=== PATIENT | female | born 1960 | race Caucasian/White ===

== ENCOUNTER 2020-10-11 04:48 | Inpatient (IN) | payer OTHER ==
[2020-10-11] MEDS ORDERED: NA CHLORIDE 0.9% 1,000 ML ONE ×2 (05:36→06:44)
[2020-10-11 05:52] LABS: Absolute Lymphocytes (CBC) 0.4 K/uL (0.7-4.9); Basophils % 0.2 % (0-1.3); Lymphocytes % 20.1 % (15.3-44.8); MPV 9.7 fL (7.6-11.3)
[2020-10-11] MEDS ORDERED: HYDROCODONE/CHLORPHEN 5 ML/OSYR ONE (05:58)
[2020-10-11] MEDS ORDERED: Levofloxacin 750mg IV 750 MG/150 ML BAG IV ONE (06:00)
[2020-10-11 06:01] LABS: Protime INR 0.83
[2020-10-11 06:23] LABS: ALT/SGPT 23 U/L (12-78); AST/SGOT 12 U/L (15-37); Albumin 3.2 g/dL (3.4-5.0); Alkaline Phosphatase 151 U/L (45-117); BUN Blood Urea Nitrogen 15 mg/dL (7-18); Bicarbonate 30 mmol/L (21-32); Bilirubin Direct 0.1 mg/dL (0-0.2); Bilirubin Total 0.3 mg/dL (0.2-1.0); Glucose Level 102 mg/dL (74-106); Magnesium 1.7 mg/dL (1.8-2.4); NT PRO-BNP 738 pg/mL (<125); Potassium 4.1 mmol/L (3.5-5.1); Protein, Total 6.4 g/dL (6.4-8.2); Sodium Level 146 mmol/L (136-145); Troponin (Emerg Dept Use Only) < 0.02 ng/mL (0.0-0.045)
[2020-10-11 06:39] LABS: Arterial Blood Carboxyhemoglob 0.7 % (0-1.5); Blood Gas Oxyhemoglobin 36.1 % (94-97); Blood O2 Saturation 36.7 % (92-98.5)
[2020-10-11] MEDS ORDERED: PIPER/TAZO/NS 3.375gm 3.375 GM/100 ML BAG ONE (06:44)
[2020-10-11] MEDS ORDERED: NA CHLORIDE 0.9% 2,000 ML ONE (06:57)
[2020-10-11 07:40] LABS: Blood Morphology Comment NOT SEEN (NOT SEEN); Platelet Estimate DECR; White Blood Cell Scan OK (OK)
--- NOTE | 2020-10-11 08:17 | EDPHYS ---
Physician Documentation [facility] Name: Xavi Goodwin Age: 60 yrs Sex: Female : 1960 Arrival Date: 10/11/2020 Time: 04:54 Bed 2 Private MD: ED Physician Jorge Mckeon HPI: 10/11 06:49 This 60 yrs old Female presents to ER via EMS with complaints of Shortness Of pkl Breath. 06:49 The patient has shortness of breath at rest. Onset: The symptoms/episode began/occurred pkl just prior to arrival, yesterday, and became worse. Associated signs and symptoms: Pertinent positives: non-productive cough. Historical: - Allergies: 05:01 Sulfa (Sulfonamide Antibiotics); em - PMHx: 05:01 Anemia; Diabetes - NIDDM; Bipolar disorder; TIA; Anxiety; Hypertension; CHF; em Hyperlipidemia; - PSHx: 05:01 Carpal Tunnel Repair; em - Immunization history:: Adult Immunizations up to date. - Social history:: Smoking status: Patient denies any tobacco usage or history of. ROS: 06:49 Eyes: Negative for injury, pain, redness, and discharge, ENT: Negative for injury, pkl pain, and discharge, Neck: Negative for injury, pain, and swelling, Cardiovascular: Negative for chest pain, palpitations, and edema. 06:49 Respiratory: Positive for cough, with no reported sputum, shortness of breath, at rest. 06:49 Abdomen/GI: Negative for abdominal pain, nausea, vomiting, and diarrhea. 06:49 Back: Negative for acute changes. 06:49 : Negative for urinary symptoms. 06:49 MS/extremity: Negative for acute changes. 06:49 Skin: Negative for rash. 06:49 Neuro: Negative for altered mental status, loss of consciousness. Exam: 06:49 Head/Face: Normocephalic, atraumatic. Eyes: Pupils equal round and reactive to light, pkl extra-ocular motions intact. Lids and lashes normal. Conjunctiva and sclera are non-icteric and not injected. Cornea within normal limits. Periorbital areas with no swelling, redness, or edema. ENT: Nares patent. No nasal discharge, no septal abnormalities noted. Tympanic membranes are normal and external auditory canals are clear. Oropharynx with no redness, swelling, or masses, exudates, or evidence of obstruction, uvula midline. Mucous membranes moist. Neck: Trachea midline, no thyromegaly or masses palpated, and no cervical lymphadenopathy. Supple, full range of motion without nuchal rigidity, or vertebral point tenderness. No Meningismus. Chest/axilla: Normal chest wall appearance and motion. Nontender with no deformity. No lesions are appreciated. Cardiovascular: Regular rate and rhythm with a normal S1 and S2. No gallops, murmurs, or rubs. Normal PMI, no JVD. No pulse deficits. 06:49 Respiratory: moderate respiratory distress is noted, Respirations: labored breathing, Breath sounds: rales, that are moderate, are scattered. 06:49 Abdomen/GI: Bowel sounds: normal, Palpation: abdomen is soft and non-tender, in all quadrants. 06:49 Back: Exam negative for acute changes. 06:49 : Exam negative for acute changes. 06:49 Musculoskeletal/extremity: Exam is negative for acute changes. 06:49 Skin: Exam negative for rash. 06:49 Neuro: Orientation: is normal, Mentation: is normal, Cranial nerves: grossly normal, Motor: is normal. Vital Signs: 04:55 BP 173 / 100; Pulse 132 MON; Resp 31; Temp 98.6(O); Pulse Ox 100% on Non-rebreather em mask; Weight 103.87 kg; Height 5 ft. 6 in. (167.64 cm); Pain 0/10; 05:56 BP 101 / 57; Pulse 101; Resp 27; Pulse Ox 98% on BiPAP; rr5 06:19 BP 70 / 50; Pulse 108; Resp 20; Pulse Ox 98% on 40% BiPAP; rr5 06:45 BP 74 / 51; Pulse 100; Resp 22; Pulse Ox 98% on 40% BiPAP; rr5 07:52 BP 100 / 64 (man/); Pulse 119; Resp 15; Pulse Ox 97% on 40% BiPAP; jl7 09:15 BP 94 / 59; Pulse 103; Resp 19 S; Pulse Ox 95% on BiPAP; jl7 04:55 Body Mass Index 36.96 (103.87 kg, 167.64 cm) em MDM: 05:00 Patient medically screened. pkl 06:49 Data reviewed: vital signs, nurses notes, lab test result(s), EKG, radiologic studies. pkl ED course: Talked to Dr. Granado, will see patient in ER and decide on disposition. 10/11 05:03 Order name: Basic Metabolic Panel pkl 10/11 05:03 Order name: CBC with Diff; Complete Time: 08:17 pkl 10/11 05:03 Order name: LFT's pkl 10/11 05:03 Order name: Magnesium pkl 10/11 05:03 Order name: NT PRO-BNP; Complete Time: 06:41 pkl 10/11 05:03 Order name: PT-INR; Complete Time: 06:41 pkl 10/11 05:03 Order name: Troponin (emerg Dept Use Only); Complete Time: 06:41 pkl 10/11 05:03 Order name: Blood Culture Adult (2) pkl 10/11 05:03 Order name: Lactate; Complete Time: 06:41 pkl 10/11 05:03 Order name: Procalcitonin; Complete Time: 06:41 pkl 10/11 05:03 Order name: ABG; Complete Time: 08:17 pkl 10/11 05:03 Order name: D-Dimer; Complete Time: 06:41 pkl 10/11 05:04 Order name: Basic Metabolic Panel; Complete Time: 06:41 EDMS 10/11 05:04 Order name: Liver (Hepatic) Function; Complete Time: 06:41 EDMS 10/11 05:04 Order name: Magnesium; Complete Time: 06:41 EDMS 10/11 06:26 Order name: SARS-COV-2 RT PCR; Complete Time: 06:41 EDMS 10/11 07:40 Order name: CBC Smear Scan; Complete Time: 08:17 EDMS 10/11 09:32 Order name: Lactate Sepsis 2 HR Follow-up EDMS 10/11 10:01 Order name: CBC with Automated Diff EDMS 10/11 10:01 Order name: CBC with Automated Diff EDMS 10/11 10:01 Order name: Comprehensive Metabolic Panel EDMS 10/11 10:01 Order name: Comprehensive Metabolic Panel EDMS 10/11 10:01 Order name: Lactate EDMS 10/11 10:01 Order name: Lactate EDMS 10/11 10:01 Order name: Lipid Profile EDMS 10/11 10:01 Order name: Lipid Profile EDMS 10/11 10:01 Order name: Magnesium EDMS 10/11 10:01 Order name: Magnesium EDMS 10/11 10:01 Order name: NT PRO-BNP EDMS 10/11 05:03 Order name: XRAY Chest (1 view) pkl 10/11 05:03 Order name: EKG; Complete Time: 05:04 pkl 10/11 05:03 Order name: Cardiac monitoring; Complete Time: 05:57 pkl 10/11 05:03 Order name: EKG - Nurse/Tech; Complete Time: 05:57 pkl 10/11 05:03 Order name: IV Saline Lock; Complete Time: 05:57 pkl 10/11 05:03 Order name: Labs collected and sent; Complete Time: 05:57 pkl 10/11 05:03 Order name: O2 Per Protocol; Complete Time: 05:57 pkl 10/11 05:03 Order name: O2 Sat Monitoring; Complete Time: 05:57 pkl 10/11 06:15 Order name: CT Chest For PE Angio pkl 10/11 10:01 Order name: CONS Physician Consult EDMS 10/11 10:01 Order name: CONS Physician Consult EDMS 10/11 10:01 Order name: NPO EDMS 10/11 10:01 Order name: NT PRO-BNP EDMS 10/11 10:01 Order name: Phosphorus EDMS 10/11 10:01 Order name: Phosphorus EDMS Administered Medications: 05:30 Drug: levofloxacin 750 mg Volume: 150 ml; Route: IVPB; Infused Over: 90 mins; Site: rr5 right forearm; 07:00 Follow up: Response: No adverse reaction; IV Status: Completed infusion jl7 07:00 Follow up: IV Intake: 150ml jl7 05:55 Drug: NS 0.9% 1000 ml Route: IV; Rate: 100 ml/hr; Site: right forearm; rr5 08:00 Follow up: Response: No adverse reaction; IV Status: Infusion continued upon admission jl7 05:55 Drug: Tussionex Pennkinetic ER (chlorpheniramine-hydrocodone) 5 ml Route: PO; rr5 06:21 Follow up: Response: No adverse reaction rr5 06:21 Drug: NS 0.9% 500 ml Route: IV; Rate: bolus; Site: right forearm; rr5 07:00 Follow up: Response: No adverse reaction; IV Status: Completed infusion; IV Intake: jl7 500ml 06:43 Drug: NS 0.9% (30 ml/kg) 30 ml/kg Route: IV; Rate: bolus; Site: right forearm; rr5 07:57 Follow up: Response: No adverse reaction; IV Status: Completed infusion; IV Intake: jl7 2000ml 07:00 Dru.375 grams of (Piperacillin-Tazobactam 3.375 grams, NS 0.9% 100 ml) Route: IVPB; rr5 Infused Over: 60 mins; Site: right hand; 07:00 Follow up: Response: No adverse reaction; IV Status: Completed infusion; IV Intake: jl7 100ml 10:42 CANCELLED (wrong ordering MD): Zofran (Ondansetron) 4 mg IVP once; over 2 minutes jl7 10:42 Drug: Zofran (Ondansetron) 4 mg Route: IVP; Site: right forearm; jl7 Disposition: 08:12 Critical Care:. pkl Disposition: 10/11/20 08:16 Hospitalization ordered by Jacki Granado for Inpatient Admission. Preliminary diagnosis is Acute dyspnea. Large pneumonia right lung. R/O Sepsis. - Bed requested for Telemetry/MedSurg (Inpatient). - Status is Inpatient Admission. jl7 - Condition is Stable. - Problem is new. - Symptoms have improved. Critical care time excluding procedures: 08:12 Critical care time: Bedside Care: 40 minutes. Total time: 40 minutes pkl Signatures: Dispatcher [employer] Anuradha Singh RN RN kl Lam, Pin, MD MD pk Nish Adorno RN RN em Leal, Jahala, RN RN jl7 Will Blackwood RN RN rr5 Corrections: (The following items were deleted from the chart) 05:27 05:06 CORONAVIRUS+MR.LAB.BRZ ordered. EDWI EDMS 10:42 10:41 Zofran (Ondansetron) 4 mg IVP once; over 2 minutes ordered. jl7 jl7 13:28 08:16 Hospitalization Ordered by Jacki Granado MD for Inpatient Admission. Preliminary kl diagnosis is Acute dyspnea. Large pneumonia right lung. R/O Sepsis. Bed requested for Telemetry/MedSurg (Inpatient). Status is Inpatient Admission. Condition is Stable. Problem is new. Symptoms have improved. pkl 14:16 13:28 10/11/2020 08:16 Hospitalization Ordered by Jacki Granado MD for Inpatient jl7 Admission. Preliminary diagnosis is Acute dyspnea. Large pneumonia right lung. R/O Sepsis. Bed requested for Telemetry/MedSurg (Inpatient). Status is Inpatient Admission. Condition is Stable. Problem is new. Symptoms have improved. kl
--- NOTE | 2020-10-11 08:17 | ER ---
Nurse's Notes [facility] Name: Xavi Goodwin Age: 60 yrs Sex: Female : 1960 Arrival Date: 10/11/2020 Time: 04:54 Bed 2 Private MD: Diagnosis: Acute dyspnea. Large pneumonia right lung. R/O Sepsis Presentation: 10/11 04:55 Chief complaint: EMS states: called out for shortness of breath, on scene pt was high em 70's % SPO2, placed on non-re breather now 97%and HR 130's pt A\T\Ox4, had a carpel tunnel sx on left wrist yesterday, denies chest pain. Coronavirus screen: Client denies travel out of the [place] in the last 14 days. Ebola Screen: Patient negative for fever greater than or equal to 101.5 degrees Fahrenheit, and additional compatible Ebola Virus Disease symptoms Patient denies exposure to infectious person. Patient denies travel to an Ebola-affected area in the 21 days before illness onset. No symptoms or risks identified at this time. Initial Sepsis Screen: Does the patient meet any 2 criteria? RR > 20 per min. HR > 90 bpm. Yes Does the patient have a suspected source of infection? Yes: Productive cough/pneumonia If YES to both, name of provider notified: Raman Rouse RN. Risk Assessment: Do you want to hurt yourself or someone else? Patient reports no desire to harm self or others. Onset of symptoms was October 11, 2020. 04:55 Method Of Arrival: EMS: [facility] em 04:55 Acuity: FERCHO 2 em 04:57 Coronavirus screen: At this time, unable to obtain information related to travel rv outside the [place] Coronavirus screen: difficulty breathing, shortness of breath, Client presents with at least one sign or symptom that may indicate coronavirus-19. Standard/surgical mask placed on the client. Provider contacted for isolation considerations. Ebola Screen: No symptoms or risks identified at this time. Initial Sepsis Screen: Does the patient meet any 2 criteria? RR > 20 per min. HR > 90 bpm. Does the patient have a suspected source of infection? Yes: Productive cough/pneumonia. Risk Assessment: Do you want to hurt yourself or someone else? Patient reports no desire to harm self or others. Onset of symptoms was October 11, 2020. 04:57 Acuity: FERCHO 2 rv 04:57 Method Of Arrival: EMS: [facility] rv Triage Assessment: 05:01 General: Appears uncomfortable, ill. Respiratory: Reports shortness of breath at rest rv Onset: The symptoms/episode began/occurred today, the patient has moderate shortness of breath. Historical: - Allergies: 05:01 Sulfa (Sulfonamide Antibiotics); em - PMHx: 05:01 Anemia; Diabetes - NIDDM; Bipolar disorder; TIA; Anxiety; Hypertension; CHF; em Hyperlipidemia; - PSHx: 05:01 Carpal Tunnel Repair; em - Immunization history:: Adult Immunizations up to date. - Social history:: Smoking status: Patient denies any tobacco usage or history of. Screenin:57 Abuse screen: Denies threats or abuse. Denies injuries from another. Nutritional rv screening: No deficits noted. Tuberculosis screening: No symptoms or risk factors identified. Fall Risk None identified. Assessment: 04:56 General: Appears uncomfortable, ill, Behavior is calm, cooperative. Pain: Denies pain. rv Neuro: Level of Consciousness is awake, alert, obeys commands, Oriented to person, place, time, situation. Cardiovascular: Patient's skin is warm and dry. Rhythm is sinus tachycardia. Respiratory: Airway is patent Respiratory effort is labored, Breath sounds are coarse bilaterally. Derm: Skin is intact. 05:57 Reassessment: Patient appears in no apparent distress at this time. Patient is alert, rr5 oriented x 3, equal unlabored respirations, skin warm/dry/pink. Patient states symptoms have improved. 06:05 Respiratory: Patient placed on BiPAP: Inspiratory Pressure: 16 Expiratory (EPAP) rr5 Pressure: 8 FiO2%: 40 Respiratory Rate: 18. 06:19 Reassessment: BP 70/50 mmHg ED provider informed with order made and carried out. rr5 06:22 Reassessment: ravinder from laboratory called with result of d dimer 2383 and rr5 lactate 2.2. ED aware. 06:35 Reassessment: ED Provider with verbal order to follow IVF sepsis per protocol. rr5 07:30 Reassessment: Patient appears in no apparent distress at this time. Patient and/or jl7 family updated on plan of care and expected duration. Pain level reassessed. Patient is alert, oriented x 3, equal unlabored respirations, skin warm/dry/pink. Patient denies pain at this time. Patient states feeling better. 08:30 Reassessment: Patient appears in no apparent distress at this time. No changes from jl7 previously documented assessment. Patient and/or family updated on plan of care and expected duration. Pain level reassessed. Patient is alert, oriented x 3, equal unlabored respirations, skin warm/dry/pink. Vital Signs: 04:55 BP 173 / 100; Pulse 132 MON; Resp 31; Temp 98.6(O); Pulse Ox 100% on Non-rebreather em mask; Weight 103.87 kg; Height 5 ft. 6 in. (167.64 cm); Pain 0/10; 05:56 BP 101 / 57; Pulse 101; Resp 27; Pulse Ox 98% on BiPAP; rr5 06:19 BP 70 / 50; Pulse 108; Resp 20; Pulse Ox 98% on 40% BiPAP; rr5 06:45 BP 74 / 51; Pulse 100; Resp 22; Pulse Ox 98% on 40% BiPAP; rr5 07:52 BP 100 / 64 (man/); Pulse 119; Resp 15; Pulse Ox 97% on 40% BiPAP; jl7 09:15 BP 94 / 59; Pulse 103; Resp 19 S; Pulse Ox 95% on BiPAP; jl7 04:55 Body Mass Index 36.96 (103.87 kg, 167.64 cm) em ED Course: 04:54 Patient arrived in ED. em 04:56 Raman Rouse, RAMONA is Primary Nurse. rv 04:59 Triage completed. em 05:00 Jorge Mckeon MD is Attending Physician. pkl 05:00 Patient has correct armband on for positive identification. mail clerk bills on. Pulse rv ox on. NIBP on. 05:01 Arm band placed on. em 05:10 COVID swab sent to lab. rr5 05:21 XRAY Chest (1 view) In Process Unspecified. EDMS 05:30 Inserted saline lock: 22 gauge in right forearm, using aseptic technique. Blood rr5 collected. 05:30 First set of blood cultures drawn by me. rr5 05:31 VBG drawn. rr5 05:45 Second set of blood cultures drawn by me. rr5 07:00 Inserted saline lock: 20 gauge in right hand, using aseptic technique. rr5 07:12 No provider procedures requiring assistance completed. Patient admitted, IV remains in rr5 place. intact, No redness/swelling at site. 08:14 Jacki Granado MD is Hospitalizing Provider. pkl 08:38 CT Chest For PE Angio In Process Unspecified. EDMS 09:22 Repeat lab(s) drawn. by wv, sent to lab. jl7 Administered Medications: 05:30 Drug: levofloxacin 750 mg Volume: 150 ml; Route: IVPB; Infused Over: 90 mins; Site: rr5 right forearm; 07:00 Follow up: Response: No adverse reaction; IV Status: Completed infusion jl7 07:00 Follow up: IV Intake: 150ml jl7 05:55 Drug: NS 0.9% 1000 ml Route: IV; Rate: 100 ml/hr; Site: right forearm; rr5 08:00 Follow up: Response: No adverse reaction; IV Status: Infusion continued upon admission jl7 05:55 Drug: Tussionex Pennkinetic ER (chlorpheniramine-hydrocodone) 5 ml Route: PO; rr5 06:21 Follow up: Response: No adverse reaction rr5 06:21 Drug: NS 0.9% 500 ml Route: IV; Rate: bolus; Site: right forearm; rr5 07:00 Follow up: Response: No adverse reaction; IV Status: Completed infusion; IV Intake: jl7 500ml 06:43 Drug: NS 0.9% (30 ml/kg) 30 ml/kg Route: IV; Rate: bolus; Site: right forearm; rr5 07:57 Follow up: Response: No adverse reaction; IV Status: Completed infusion; IV Intake: jl7 2000ml 07:00 Dru.375 grams of (Piperacillin-Tazobactam 3.375 grams, NS 0.9% 100 ml) Route: IVPB; rr5 Infused Over: 60 mins; Site: right hand; 07:00 Follow up: Response: No adverse reaction; IV Status: Completed infusion; IV Intake: jl7 100ml 10:42 CANCELLED (wrong ordering MD): Zofran (Ondansetron) 4 mg IVP once; over 2 minutes jl7 10:42 Drug: Zofran (Ondansetron) 4 mg Route: IVP; Site: right forearm; jl7 Intake: 07:00 IV: 100ml; Total: 100ml. jl7 07:00 IV: 500ml; Total: 600ml. jl7 07:00 IV: 150ml; Total: 750ml. jl7 07:57 IV: 2000ml; Total: 2750ml. jl7 Outcome: 08:16 Decision to Hospitalize by Provider. pkl 14:15 Admitted to Tele accompanied by tech, via wheelchair, room 427, with oxygen, with jl7 chart, Report called to Boiler House Supervisor 14:15 Condition: stable 14:15 Discharge instructions given to patient, Instructed on the need for admit, Demonstrated understanding of instructions. 14:16 Patient left the ED. jl7 Signatures: Dispatcher [employer] EDJorge Holbrook MD MD pkNish Do, RN RN Madelaine Zuñiga RN RN jl7 Raman Rouse RN RN Will Taylor, RN RN rr5 Corrections: (The following items were deleted from the chart) 05:00 04:57 BP 173 / 100; Pulse 129bpm; Resp 30bpm; Pulse Ox 100% BiPAP; rv rv
--- NOTE | 2020-10-11 08:54 | RAD REPORT ---
EXAM DESCRIPTION: CT - Chest For Pe Angio - 10/11/2020 8:38 am CLINICAL HISTORY: cough,sob COMPARISON: None. TECHNIQUE: Dynamically enhanced axial 3 mm thick images of the chest were obtained during administra tion of <100> mL Isovue 370 IV contrast. Coronal and oblique reconstruction images were generated and reviewed. Exam utilizes a protocol for optimal evaluation of pulmonary arterial tree. Maximum intensity projections 3D imaging was utilized All CT scans are performed using dose optimization technique as appropriate and may include automated exposure control or mA/KV adjustment according to patient size. FINDINGS: A pulmonary embolus is not seen. A thoracic aortic aneurysm is not noted. A pleural effusion is not seen. A pericardial effusion is not seen. Extensive alveolar opacities throughout the right lung. A hiatal hernia is present. The wall of the distal esophagus/proximal stomach appears thickened IMPRESSION: Negative for a pulmonary embolism. Extensive right pneumonia. This should be followed until it is clear to help exclude a post obstructi ve process A hiatal hernia is present. The wall of the distal esophagus/proximal stomach appears thickened. This may indicate a mass. Direct visualization is recommended
[2020-10-11] MEDS: NA CHLORIDE 0.9% 1,000 ML IV SCH ×2 (10:00→14:52)
[2020-10-11] MEDS ORDERED: PANTOPRAZOLE 40 MG INJ IVP ONE (10:00)
[2020-10-11] MEDS ORDERED: SODIUM CHLORIDE 0.9% 10ML INJ IV PRN (10:00)
[2020-10-11] MEDS ORDERED: ONDANSETRON 4 MG/2 ML VIAL ONE ×3 (10:57→13:05)
--- NOTE | 2020-10-11 11:23 | RAD REPORT ---
EXAM DESCRIPTION: Nila Single View10/11/2020 5:22 am CLINICAL HISTORY: The patient is 60 years old and is Female; Cough;Dyspnea TECHNIQUE: Single portable upright view of the chest. COMPARISON: No relevant prior studies available. FINDINGS: Lungs: Multilobar airspace opacities in the right lung including the right upper lobe. Left lung is clear. No pulmonary vascular congestion. Pleural space: Unremarkable. No pneumothorax. Heart: Unremarkable. No cardiomegaly. Mediastinum: Unremarkable. Bones/joints: No acute fracture identified. Upper abdomen: No free air in the visualized upper abdomen. IMPRESSION: Multilobar airspace opacities in the right lung including the right upper lobe. Correlat e clinically for pneumonia. Electronically signed by: Spring Rolle MD 10/11/2020 5:34 AM CDT Due to temporary technical issues with the PACS/Fluency reporting system, reports are being signed by the in house radiologist without review as a courtesy to ensure prompt reporting. The interpreting r adiologist is fully responsible for the content of the report.
[2020-10-11 11:57] VITALS: BMI 36.9
[2020-10-11] MEDS: Meropenem 1,000 MG in NA CHLORIDE 0.9% 100 ML IV SCH ×2 (12:21→18:43)
[2020-10-11] MEDS: ONDANSETRON 4 MG/2 ML VIAL IV PRN ×2 (12:30→16:39)
--- NOTE | 2020-10-11 12:54 | P.CNS ---
Date of Consult: 10/11/20 Reason for Consult: Pneumonia respiratory failure Chief Complaint: Respiratory failure History of Present Illness: Patient is 60 years of age. I saw her in the emergency room patient was on a BiPAP came in for shortness of breath hypoxemia found to have an extensive right-sided pneumonia and was on BiPAP patient does not smoke currently This happened sudden in onset also been complaining of an acute cough recently had left arm carpal tunnel surgery Allergies Sulfa (Sulfonamide Antibiotics) Allergy (Verified 10/11/20 10:19) unk Home Medications: Acetaminophen [Acetaminophen ER] 1 tab PO Q4H PRN 10/11/20 Atenolol [Tenormin] 1 tab PO DAILY 10/11/20 Dexlansoprazole [Dexilant] 60 mg PO DAILY 10/11/20 Escitalopram Oxalate 1 tab PO BEDTIME 10/11/20 Gabapentin 600 mg PO QID 10/11/20 Ibuprofen [Motrin] 1 tab PO WMP PRN 10/11/20 Lidocaine 5% [Lidocaine HCl] 1 appl TOP Q6H PRN 10/11/20 Linaclotide [Linzess] 290 mcg PO DAILY 10/11/20 Lovastatin 20 mg PO DAILY 10/11/20 Metoclopramide HCl [Reglan] 1 tab PO DAILY PRN 10/11/20 Midodrine HCl 5 mg PO BID 10/11/20 Nitroglycerin 0.4 mg SL SEECOM 10/11/20 OXcarbazepine [Oxcarbazepine] 1 tab PO BID 10/11/20 Oxycodone HCl/Acetaminophen [Oxycodone-Acetaminophen 10-325] 1 tab PO Q6H PRN 10/11/20 Quetiapine Fumarate [Seroquel] 50 mg PO BEDTIME 10/11/20 Ranolazine [Ranolazine ER] 1,000 mg PO BID 10/11/20 Trazodone HCl 50 mg PO BEDTIME 10/11/20 Vitamin E (Dl,Tocopheryl Acet) [E-200] 200 unit PO DAILY 10/11/20 hydroCHLOROthiazide [Hydrochlorothiazide] 12.5 mg PO DAILY 10/11/20 - Past Medical/Surgical History -: Anemia; Diabetes - NIDDM; Bipolar disorder; TIA; Anxiety; Hypertension; CHF -: Left carpal tunnel surgery Review of Systems is unable to be obtained Physical Examination General: Moderate distress Respiratory: Crackles/rales (Crackles on the right side) Cardiovascular: No edema, Regular rate/rhythm Gastrointestinal: Normal bowel sounds, Soft and benign Laboratory Data (last 24 hrs) 10/11/20 05:30: PT 9.5, INR 0.83 10/11/20 05:30: WBC 2.00 L D, Hgb 11.4 L, Hct 34.0 L, Plt Count 135 L D 10/11/20 05:30: Sodium 146 H, Potassium 4.1, BUN 15, Creatinine 0.50 L, Glucose 102, Magnesium 1.7 L, Total Bilirubin 0.3, AST 12 L, ALT 23, Alkaline Phosphatase 151 H - Problems (1) Pneumonia Current Visit: Yes Status: Acute Plan: Patient is 60 years of age admitted with acute onset of symptoms with right- sided fairly extensive pneumonia labs reviewed patient is neutropenic chest x- ray also shows extensive infiltrate on the right side negative for pulmonary embolism most likely this is pneumococcal pneumonia recommend continue with levo floxacin high-dose patient is anxious needs to resume her home medications Qualifiers: Pneumonia type: due to unspecified organism
[2020-10-11] MEDS ORDERED: PANTOPRAZOLE 40 MG INJ ONE ×2 (13:01→13:05)
[2020-10-11] MEDS: ALBUTEROL 2.5 MG/3 ML NEB SOL NEB SCH ×2 (13:05→20:00)
[2020-10-11] MEDS: IPRATROPIUM BROM 0.5MG/2.5ML NEB SCH ×2 (13:05→20:00)
[2020-10-11] MEDS ORDERED: ALBUTEROL 2.5 MG/3 ML NEB SOL ONE (13:16)
[2020-10-11] MEDS ORDERED: IPRATROPIUM BROM 0.5MG/2.5ML ONE (13:16)
[2020-10-11] MEDS ORDERED: Meropenem 1000 MG/VIAL IV SCH (17:00)
[2020-10-11] MEDS ORDERED: PROMETHAZINE INJ 25 MG/ML AMP IV ONE (18:35)
[2020-10-11] MEDS ORDERED: WATER FOR INJ,STERILE 10 ML ONE (19:00)
[2020-10-11] MEDS: PANTOPRAZOLE 40 MG INJ IVP SCH (20:33)
[2020-10-11] MEDS ORDERED: MAGNESIUM SULFATE 1 gm IVPB 1 GM/100 ML BAG IV ONE (21:00)
[2020-10-11] MEDS: MORPHINE 2 MG/ML SYR IV PRN (22:18)
[2020-10-12] MEDS: ONDANSETRON 4 MG/2 ML VIAL IV PRN (00:26)
[2020-10-12] MEDS: Meropenem 1,000 MG in NA CHLORIDE 0.9% 100 ML IV SCH (00:26)
[2020-10-12] MEDS: HYDRALAZINE HCL 20 MG/ML VIAL IV PRN ×3 (01:02→16:35)
[2020-10-12] MEDS: METOCLOPRAMIDE 10 MG/2mL INJ IV PRN ×2 (01:02→08:15)
[2020-10-12] MEDS ORDERED: MORPHINE 2 MG/ML SYR IM ONE (01:49)
[2020-10-12] MEDS: IPRATROPIUM BROM 0.5MG/2.5ML NEB SCH ×4 (02:00→19:30)
[2020-10-12] MEDS: ALBUTEROL 2.5 MG/3 ML NEB SOL NEB SCH ×4 (02:00→19:30)
[2020-10-12] MEDS: MORPHINE 2 MG/ML SYR IV PRN (04:56)
[2020-10-12] MEDS: NA CHLORIDE 0.9% 1,000 ML IV SCH ×2 (05:00→12:40)
[2020-10-12] MEDS: Levofloxacin 750mg IV 750 MG/150 ML BAG IV SCH (05:00)
[2020-10-12 08:13] LABS: Absolute Lymphocytes (CBC) 0.5 K/uL (0.7-4.9); Basophils % 0.1 % (0-1.3); Hematocrit 28.2 % (36.0-45.0); Lymphocytes % 4.7 % (15.3-44.8); MPV 9.6 fL (7.6-11.3); RBC Red Blood Cell Count 3.17 M/uL (3.86-4.86)
[2020-10-12] MEDS: PANTOPRAZOLE 40 MG INJ IVP SCH ×2 (08:16→20:06)
[2020-10-12] MEDS: ENOXAPARIN 40 MG/0.4 ML SQ SCH (08:16)
[2020-10-12 08:28] LABS: ALT/SGPT 18 U/L (12-78); AST/SGOT 11 U/L (15-37); Albumin 2.7 g/dL (3.4-5.0); Alkaline Phosphatase 99 U/L (45-117); BUN Blood Urea Nitrogen 12 mg/dL (7-18); Bicarbonate 25 mmol/L (21-32); Bilirubin Total 0.4 mg/dL (0.2-1.0); Glucose Level 123 mg/dL (74-106); HDL Cholesterol 98 mg/dL (40-60); LDL Cholesterol, Calculated 49 (<130); Magnesium 1.7 mg/dL (1.8-2.4); NT PRO-BNP 1287 pg/mL (<125); Phosphorus 1.6 mg/dL (2.5-4.9); Potassium 3.6 mmol/L (3.5-5.1); Sodium Level 142 mmol/L (136-145)
[2020-10-12] MEDS ORDERED: MAGNESIUM SULFATE 1 gm IVPB 1 GM/100 ML BAG IV ONE (08:57)
[2020-10-12] MEDS ORDERED: METOCLOPRAMIDE 5 MG TAB PO PRN (09:15)
[2020-10-12] MEDS ORDERED: HOME MED 1 EA UNK (Oxycodone Hcl/Acetaminophen [Oxycodone-Acetaminophen 10-325] Tablet) PO PRN (09:15)
[2020-10-12] MEDS ORDERED: POTASSIUM PHOS IN 0.9 % NACL 15 MMOL/250 ML BAG IV ONE (09:26)
[2020-10-12 09:31] LABS: Blood Morphology Comment NOT SEEN (NOT SEEN); Platelet Estimate DECR; White Blood Cell Scan OK (OK)
[2020-10-12] MEDS: Oxycodone HCl/Acetaminophen 1 TAB TAB PO PRN ×2 (10:57→20:12)
[2020-10-12] MEDS: atenoloL 50 MG TAB PO SCH (10:58)
--- NOTE | 2020-10-12 12:50 | EKG ---
Test Date: 2020-10-11 Test Time: 04:53:30 Pediatric Ophthalmologist: RR MEASUREMENT RESULTS: Intervals: Rate: 125 [place]: 166 QRSD: 84 QT: 300 QTc: 433 [place]: P: 46 [place]: 166 QRS: -61 T: 55 INTERPRETIVE STATEMENTS: Sinus tachycardia Left anterior fascicular block Possible Inferior infarct, age undetermined Abnormal ECG No previous ECG available for comparison Electronically Signed On 10-12-20 12:46:06 CDT by Blake Humphrey
[2020-10-12] MEDS: GABAPENTIN 300 MG CAP PO SCH ×3 (13:53→20:04)
[2020-10-12] MEDS: ESCITALOPRAM 20 MG TAB PO SCH (20:03)
[2020-10-12] MEDS: QUETIAPINE 25 MG TAB PO SCH (20:04)
[2020-10-12] MEDS: TRAZODONE 50 MG TABLET PO SCH (20:04)
[2020-10-12] MEDS: OXcarbazepine 150 MG TAB PO SCH (20:05)
[2020-10-12] MEDS: MIDODRINE HCL 5 MG TABLET PO SCH (20:05)
[2020-10-13] MEDS: IPRATROPIUM BROM 0.5MG/2.5ML NEB SCH ×4 (02:10→19:35)
[2020-10-13] MEDS: ALBUTEROL 2.5 MG/3 ML NEB SOL NEB SCH ×4 (02:10→19:35)
[2020-10-13] MEDS: NA CHLORIDE 0.9% 1,000 ML IV SCH ×2 (02:17→15:20)
[2020-10-13] MEDS: Oxycodone HCl/Acetaminophen 1 TAB TAB PO PRN ×3 (04:40→20:07)
[2020-10-13] MEDS: Levofloxacin 750mg IV 750 MG/150 ML BAG IV SCH (06:12)
[2020-10-13] MEDS ORDERED: atenoloL 25 MG TAB ONE (07:21)
[2020-10-13 07:33] LABS: Absolute Lymphocytes (CBC) 0.6 K/uL (0.7-4.9); Basophils % 0.1 % (0-1.3); Hematocrit 27.4 % (36.0-45.0); Lymphocytes % 7.4 % (15.3-44.8); MPV 9.4 fL (7.6-11.3); RBC Red Blood Cell Count 3.09 M/uL (3.86-4.86)
[2020-10-13 07:41] LABS: BUN Blood Urea Nitrogen 13 mg/dL (7-18); Bicarbonate 24 mmol/L (21-32); Glucose Level 96 mg/dL (74-106); Magnesium 1.7 mg/dL (1.8-2.4); NT PRO-BNP 1654 pg/mL (<125); Phosphorus 1.5 mg/dL (2.5-4.9); Potassium 3.7 mmol/L (3.5-5.1); Sodium Level 141 mmol/L (136-145)
[2020-10-13] MEDS ORDERED: POTASSIUM PHOS IN 0.9 % NACL 15 MMOL/250 ML BAG IV ONE (07:57)
[2020-10-13] MEDS ORDERED: MAGNESIUM SULFATE 1 gm IVPB 1 GM/100 ML BAG IV ONE (07:59)
[2020-10-13] MEDS: ENOXAPARIN 40 MG/0.4 ML SQ SCH (08:48)
[2020-10-13] MEDS: GABAPENTIN 300 MG CAP PO SCH ×4 (08:48→20:08)
[2020-10-13] MEDS: PANTOPRAZOLE 40 MG INJ IVP SCH ×2 (08:49→20:59)
[2020-10-13] MEDS: MIDODRINE HCL 5 MG TABLET PO SCH ×3 (08:49→21:00)
[2020-10-13] MEDS: atenoloL 50 MG TAB PO SCH (08:49)
[2020-10-13] MEDS: OXcarbazepine 150 MG TAB PO SCH ×2 (09:02→20:06)
--- NOTE | 2020-10-13 09:05 | RAD REPORT ---
EXAM DESCRIPTION: RAD - Chest Single View - 10/13/2020 7:08 am CLINICAL HISTORY: pneumonia COMPARISON: October 11 TECHNIQUE: AP portable chest image was obtained 10/13/2020 7:08 am . FINDINGS: Right upper lobe shows a mild to moderate improvement in the pneumonia pattern since October 11. Right base opacification has shown similar mild to moderate improvement. Cardiomegaly remains. No significant failure or volume overload suspected. No measurable pleural eff usion and no pneumothorax. No acute bony abnormality seen. No acute aortic findings suspected. IMPRESSION: Mild to moderate improvement in the right-sided pneumonia pattern.
[2020-10-13] MEDS: QUETIAPINE 25 MG TAB PO SCH (20:08)
[2020-10-13] MEDS: TRAZODONE 50 MG TABLET PO SCH (20:08)
[2020-10-13] MEDS: ESCITALOPRAM 20 MG TAB PO SCH (20:37)
[2020-10-13] MEDS: OXYCODONE HCL 5 MG TAB PO PRN (22:20)
[2020-10-14] MEDS: IPRATROPIUM BROM 0.5MG/2.5ML NEB SCH ×4 (01:55→20:25)
[2020-10-14] MEDS: ALBUTEROL 2.5 MG/3 ML NEB SOL NEB SCH ×4 (01:55→20:25)
[2020-10-14] MEDS: Oxycodone HCl/Acetaminophen 1 TAB TAB PO PRN ×3 (02:32→18:18)
[2020-10-14] MEDS: NA CHLORIDE 0.9% 1,000 ML IV SCH ×2 (04:40→18:00)
[2020-10-14] MEDS: Levofloxacin 750mg IV 750 MG/150 ML BAG IV SCH (05:23)
[2020-10-14] MEDS: OXYCODONE HCL 5 MG TAB PO PRN ×3 (05:28→20:23)
[2020-10-14] MEDS: atenoloL 25 MG TAB ONE ×2 (08:15→08:56)
[2020-10-14] MEDS: GABAPENTIN 100 MG CAP ONE ×2 (08:15→08:55)
[2020-10-14] MEDS: OXcarbazepine 150 MG TAB PO SCH ×2 (08:57→20:14)
[2020-10-14] MEDS: ENOXAPARIN 40 MG/0.4 ML SQ SCH (08:59)
[2020-10-14] MEDS: MIDODRINE HCL 5 MG TABLET PO SCH ×2 (09:00→20:12)
[2020-10-14] MEDS: GABAPENTIN 300 MG CAP PO SCH ×4 (09:00→20:10)
[2020-10-14] MEDS: atenoloL 50 MG TAB PO SCH (09:00)
[2020-10-14] MEDS: PANTOPRAZOLE 40 MG INJ IVP SCH ×2 (09:00→20:12)
[2020-10-14] MEDS ORDERED: POTASSIUM CL SA 10 MEQ TAB PO ONE (11:08)
[2020-10-14] MEDS ORDERED: MAGNESIUM SULFATE 1 gm IVPB 1 GM/100 ML BAG IV ONE (11:19)
[2020-10-14] MEDS: POTASS/SODIUM PHOSPHATE 1 PKT POWD.PACK PO SCH ×9 (12:22→20:00)
--- NOTE | 2020-10-14 20:03 | P.HP ---
Certification for Inpatient Patient admitted to: Inpatient With expected LOS: >2 Midnights Patient will require the following post-hospital care: None Practitioner: I am a practitioner with admitting privileges, knowledge of patient current condition, hospital course, and medical plan of care. Services: Services provided to patient in accordance with Admission requirements found in Title 42 Section 412.3 of the Code of Federal Regulations Patient History Date of Service: 10/11/20 Reason for admission: Respiratory failure History of Present Illness: Patient is a 60-year-old female came to the hospital with difficulty breathing. Patient lives at [facility]. In the emergency room chest x-ray showed right lung pneumonia. There was diffuse infiltrates in the upper and lower lobes. She was started on IV antibiotic therapy. COVID-19 and flu test are negative. Most likely bacterial pneumonia and she will be started on broad-spectrum antibiotic coverage for nosocomial acquired pneumonia. Otherwise, no new complaints. Patient does have a history of hypertension and diabetes as well as congestive heart failure. X-ray does not suggest any pulmonary edema. Consulted Pulmonary as well. Allergies Sulfa (Sulfonamide Antibiotics) Allergy (Verified 10/11/20 10:19) unk Home Medications: Acetaminophen [Acetaminophen ER] 1 tab PO Q4H PRN 10/11/20 Atenolol [Tenormin] 1 tab PO DAILY 10/11/20 Dexlansoprazole [Dexilant] 60 mg PO DAILY 10/11/20 Escitalopram Oxalate 1 tab PO BEDTIME 10/11/20 Gabapentin 600 mg PO QID 10/11/20 Lidocaine 5% [Lidocaine HCl] 1 appl TOP Q6H PRN 10/11/20 Linaclotide [Linzess] 290 mcg PO DAILY 10/11/20 Lovastatin 20 mg PO DAILY 10/11/20 Metoclopramide HCl [Reglan] 1 tab PO DAILY PRN 10/11/20 Midodrine HCl 5 mg PO BID 10/11/20 Nitroglycerin 0.4 mg SL SEECOM 10/11/20 OXcarbazepine [Oxcarbazepine] 1 tab PO BID 10/11/20 Oxycodone HCl/Acetaminophen [Oxycodone-Acetaminophen 10-325] 1 tab PO Q6H PRN 10/11/20 Quetiapine Fumarate [Seroquel] 50 mg PO BEDTIME 10/11/20 Ranolazine [Ranolazine ER] 1,000 mg PO BID 10/11/20 Trazodone HCl 50 mg PO BEDTIME 10/11/20 Vitamin E (Dl,Tocopheryl Acet) [E-200] 200 unit PO DAILY 10/11/20 hydroCHLOROthiazide [Hydrochlorothiazide] 12.5 mg PO DAILY 10/11/20 Amoxicillin/Potassium Clav [Augmentin 875-125 Tablet] 1 each PO BID #14 tablet 10/14/20 - Past Medical/Surgical History Has patient received pneumonia vaccine in the past: Yes Diabetic: Yes -: Anemia; Diabetes - NIDDM; Bipolar disorder; TIA; Anxiety; Hypertension; CHF -: niddm -: BIPOLAR -: TIA -: ANXIETY -: HYPERTENSION -: CHF -: HYPERLIPIDEMIA -: Left carpal tunnel surgery - Social History Smoking Status: Current every day smoker Alcohol use: No CD- Drugs: No Caffeine use: Yes Place of Residence: [place] Review of Systems 10-point ROS is otherwise unremarkable Physical Examination - Vital Signs Temperature: 97.4 F Blood Pressure: 163/79 Pulse: 87 Respirations: 18 Pulse Ox (%): 96 - Physical Exam General: Alert, In no apparent distress, Oriented x3 HEENT: Atraumatic, PERRLA, Mucous membr. moist/pink, EOMI, Sclerae nonicteric Neck: Supple, 2+ carotid pulse no bruit, No LAD, Without JVD or thyroid abnormal ity Respiratory: Diminished, Rhonchi/gurgles Cardiovascular: Regular rate/rhythm, Normal S1 S2, No murmurs Gastrointestinal: Normal bowel sounds, Soft and benign, Non-distended, No tenderness Musculoskeletal: No clubbing, No swelling, No tenderness Integumentary: No rashes Neurological: Normal gait, Normal speech, Normal strength at 5/5 x4 extr, Normal tone, Sensation intact, Cranial nerves 3-12 intact, Normal affect Lymphatics: No axilla or inguinal lymphadenopathy Assessment & Plan - Problems (Diagnosis) (1) Nosocomial pneumonia Current Visit: Yes Status: Acute (2) Hypertension Current Visit: Yes Status: Acute (3) Diabetes type 2, controlled Current Visit: Yes Status: Acute (4) History of CHF (congestive heart failure) Current Visit: Yes Status: Acute - Plan 1. Continue with IV antibiotics 2. Awaiting sputum and blood culture 3. Repeat chest x-ray 4. CT of the chest was reviewed. 5. Appreciate pulmonary consultation 6. Continue with nebs as needed 7. O2 per protocol 8. Continue with gentle hydration 9. Repeat labs including CBC and renal function in a.m. 10. GI and DVT prophylaxis Discharge Plan: Half-Way Plan to discharge in: Greater than 2 days - Advance Directives Does patient have a Living Will: No Does patient have a Durable POA for Healthcare: No - Code Status/Comfort Care Code Status Assessed: Yes Code Status: Full Code Critical Care: No Time Spent Managing PTS Care (In Minutes): 45
--- NOTE | 2020-10-14 20:05 | P.PN ---
Subjective Date of Service: 10/12/20 Patient clinically doing much better. No new complaints voiced. Symptoms seemed to be much better. No longer hypoxic on room air. Repeat chest x-ray in a.m. and possible discharge home Review of Systems 10-point ROS is otherwise unremarkable Physical Examination - Vital Signs Temperature: 97.4 F Blood Pressure: 163/79 Pulse: 87 Respirations: 18 Pulse Ox (%): 96 - Physical Exam General: Alert, In no apparent distress, Oriented x3 Respiratory: Clear to auscultation bilaterally, Normal air movement Cardiovascular: Regular rate/rhythm, Normal S1 S2 Gastrointestinal: Normal bowel sounds, No tenderness Musculoskeletal: No tenderness Integumentary: No rashes Neurological: Normal speech, Normal tone, Normal affect Lymphatics: No axilla or inguinal lymphadenopathy - Studies Medications List Reviewed: Yes Assessment & Plan - Problems (Diagnosis) (1) Nosocomial pneumonia Current Visit: Yes Status: Acute (2) Hypertension Current Visit: Yes Status: Acute (3) Diabetes type 2, controlled Current Visit: Yes Status: Acute (4) History of CHF (congestive heart failure) Current Visit: Yes Status: Acute - Plan 1. Continue with IV antibiotics 2. Awaiting sputum and blood culture 3. Repeat chest x-ray 4. CT of the chest was reviewed. 5. Appreciate pulmonary consultation 6. Continue with nebs as needed 7. O2 per protocol 8. Continue with gentle hydration 9. Repeat labs including CBC and renal function in a.m. 10. GI and DVT prophylaxis - Advance Directives Does patient have a Living Will: No Does patient have a Durable POA for Healthcare: No - Code Status/Comfort Care Code Status: Full Code
[2020-10-14] MEDS: TRAZODONE 50 MG TABLET PO SCH (20:10)
[2020-10-14] MEDS: ESCITALOPRAM 20 MG TAB PO SCH (20:10)
[2020-10-14] MEDS: QUETIAPINE 25 MG TAB PO SCH (20:11)
[2020-10-15] MEDS: HYDRALAZINE HCL 20 MG/ML VIAL IV PRN (00:02)
[2020-10-15] MEDS: ALBUTEROL 2.5 MG/3 ML NEB SOL NEB SCH ×2 (03:00→07:35)
[2020-10-15] MEDS: IPRATROPIUM BROM 0.5MG/2.5ML NEB SCH ×2 (03:00→07:35)
[2020-10-15] MEDS: Oxycodone HCl/Acetaminophen 1 TAB TAB PO PRN ×2 (04:53→10:08)
[2020-10-15] MEDS: Levofloxacin 750mg IV 750 MG/150 ML BAG IV SCH (05:00)
--- NOTE | 2020-10-15 07:19 | P.PN ---
Date of Service: 10/13/20 Subjective Patient continues to improve with no new complaints. Respiratory status has improved. Chest x-ray is also improved. Review of Systems 10-point ROS is otherwise unremarkable Physical Examination - Vital Signs Reviewed - Physical Exam General: Alert, In no apparent distress, Oriented x3 Respiratory: Clear to auscultation bilaterally, Normal air movement Cardiovascular: Regular rate/rhythm, Normal S1 S2 Gastrointestinal: Normal bowel sounds, No tenderness Neurological: Normal speech, Normal tone, Normal affect Assessment & Plan - Problems (Diagnosis) (1) Nosocomial pneumonia Current Visit: Yes Status: Acute (2) Hypertension Current Visit: Yes Status: Acute (3) Diabetes type 2, controlled Current Visit: Yes Status: Acute (4) History of CHF (congestive heart failure) Current Visit: Yes Status: Acute - Plan Continue with plan of care as mentioned below 1. Continue with IV antibiotics 2. Cultures remain negative 3. Repeat chest x-ray 4. CT of the chest was reviewed. 5. Appreciate pulmonary consultation 6. Continue with nebs as needed 7. O2 per protocol 8. Continue with gentle hydration 9. Repeat labs including CBC and renal function in a.m. 10. GI and DVT prophylaxis
--- NOTE | 2020-10-15 07:20 | P.PN ---
Date of Service: 10/14/20 Subjective Patient doing well with no new complaints. Awaiting for placement back to [facility] once patient has been accepted. Review of Systems 10-point ROS is otherwise unremarkable Physical Examination - Vital Signs Reviewed - Physical Exam General: Alert, In no apparent distress, Oriented x3 Respiratory: Clear to auscultation bilaterally, Normal air movement Cardiovascular: Regular rate/rhythm, Normal S1 S2 Gastrointestinal: Normal bowel sounds, No tenderness Neurological: Normal speech, Normal tone, Normal affect Assessment & Plan - Problems (Diagnosis) (1) Nosocomial pneumonia Current Visit: Yes Status: Acute (2) Hypertension Current Visit: Yes Status: Acute (3) Diabetes type 2, controlled Current Visit: Yes Status: Acute (4) History of CHF (congestive heart failure) Current Visit: Yes Status: Acute - Plan Continue with plan of care as mentioned below 1. Continue with IV antibiotics; switch over to oral antibiotics at discharge 2. Cultures remain negative 3. Chest x-ray with continued improvement yesterday. No need for further imaging at this time 4. Continue with nebs as needed 5. O2 per protocol 6. Continue with gentle hydration 7. GI and DVT prophylaxis
[2020-10-15 07:52] LABS: BUN Blood Urea Nitrogen 6 mg/dL (7-18); Bicarbonate 25 mmol/L (21-32); Glucose Level 102 mg/dL (74-106); Sodium Level 141 mmol/L (136-145)
[2020-10-15 08:03] LABS: Magnesium 1.7 mg/dL (1.8-2.4); Phosphorus 2.2 mg/dL (2.5-4.9)
--- NOTE | 2020-10-15 08:30 | P.DS ---
Admission Date: 10/11/20 Discharge Date: 10/15/20 Primary Care Provider: care home physician Disposition: TRANSFER TO [facility] Discharge Condition: GOOD Reason for Admission: Respiratory failure Consultations: Pulmonary-Dr. García Procedures: COVID: Negative CT Scan: FINDINGS: A pulmonary embolus is not seen. A thoracic aortic aneurysm is not noted. A pleural effusion is not seen. A pericardial effusion is not seen. Extensive alveolar opacities throughout the right lung. A hiatal hernia is present. The wall of the distal esophagus/proximal stomach appears thickened IMPRESSION: Negative for a pulmonary embolism. Extensive right pneumonia. This should be followed until it is clear to help exclude a post obstructive process A hiatal hernia is present. The wall of the distal esophagus/proximal stomach appears thickened. Follow up CXR: COMPARISON: October 11 TECHNIQUE: AP portable chest image was obtained 10/13/2020 7:08 am . FINDINGS: Right upper lobe shows a mild to moderate improvement in the pneumonia pattern since October 11. Right base opacification has shown similar mild to moderate improvement. Cardiomegaly remains. No significant failure or volume overload suspected. No measurable pleural effusion and no pneumothorax. No acute bony abnormality seen. No acute aortic findings suspected. IMPRESSION: Mild to moderate improvement in the right-sided pneumonia pattern. Medical problem list: Dyspnea secondary to right-sided pneumonia Hypertension GERD with hiatal hernia Bipolar disorder History of TIA CAD with chronic diastolic CHF Hyperlipidemia Chronic pain Brief History of Present Illness: 60-year-old female came to the hospital with difficulty breathing. Patient lives at [facility] the shelter. In the emergency room chest x-ray showed right lung pneumonia. There was diffuse infiltrates in the upper and lower lobes. She was started on IV antibiotic therapy. COVID-19 and flu test are negative. Admitted for further evaluation and treatment. Hospital Course: Patient presented with dyspnea secondary to right-sided pneumonia. Patient was admitted for treatment. Patient was seen and evaluated by pulmonology. CT scan revealed extensive right-sided pneumonia. No pulmonary malaise noted. Patient improved with treatment. Chest x-ray repeated shows improvement. At discharge patient not requiring any oxygen. At discharge she will return back to the shelter with antibiotics. Patient will continue with Augmentin 875 mg 1 pill twice daily for 7 days. Recommend to recheck chest x-ray in 2 to 4 weeks to monitor resolution and to make sure there is no postobstructive process. Recommend follow-up with pulmonology in 1 to 2 weeks to follow-up hospitalization and continue her care. Patient with hypertension. At discharge she will continue with her medication of hydrochlorothiazide 12.5 mg 1 pill daily and atenolol 50 mg daily. Recommend to maintain blood pressure less than 130/80. Further adjustment can be done by shelter physician. Patient with GERD and hiatal hernia. At discharge she will continue with Dexilant 60 mg daily. GERD precautions in place. Aspiration precautions as well. Patient with bipolar disorder. At discharge she will continue with her current medications of Trileptal 300 mg 1 pill twice daily, Seroquel 50 mg at bedtime, trazodone 50 mg at bedtime, and Lexapro 10 mg daily. Patient with hyperlipidemia. At discharge patient will continue with lovastatin 20 mg daily. Patient with history of TIA, CAD with chronic diastolic CHF. At discharge patient will continue with current medications of Ranexa 1000 mg 1 pill twice daily. Patient also takes midodrine 5 mg 1 pill twice daily. Hold if blood pressure greater than 140 systolic. Patient with chronic pain. At discharge she will continue with gabapentin 600 mg 4 times a day. Patient takes oxycodone as well. Patient will continue with current medications. Further adjustment can be done by shelter physician. Vital Signs/Physical Exam: Temp Pulse Resp BP Pulse Ox 97.4 F 87 18 163/79 H 96 10/15/20 07:17 10/15/20 07:17 10/15/20 07:17 10/15/20 07:17 10/15/20 07:17 General: Alert, In no apparent distress, Oriented x3, Cooperative HEENT: Atraumatic Neck: Supple Respiratory: Clear to auscultation bilaterally, Normal air movement, Other (Patient on room air) Cardiovascular: Normal pulses, Regular rate/rhythm Gastrointestinal: Normal bowel sounds, Soft and benign, Non-distended, No tenderness, No masses, No rebound, No guarding Musculoskeletal: No tenderness, No warmth Integumentary: No tenderness/swelling Neurological: Normal speech, Normal strength at 5/5 x4 extr, Normal tone, Normal affect Laboratory Data at Discharge: WBC 8.00 K/uL (4.3-10.9) D 10/13/20 07:09 Hgb 9.0 g/dL (12.0-15.0) L 10/13/20 07:09 Hct 27.4 % (36.0-45.0) L 10/13/20 07:09 Plt Count 131 K/uL (152-406) L 10/13/20 07:09 PT 9.5 SECONDS (9.5-12.5) 10/11/20 05:30 INR 0.83 10/11/20 05:30 Sodium 141 mmol/L (136-145) 10/15/20 07:26 Potassium 4.0 mmol/L (3.5-5.1) 10/15/20 07:26 BUN 6 mg/dL (7-18) L 10/15/20 07:26 Creatinine 0.32 mg/dL (0.55-1.3) L 10/15/20 07:26 Glucose 102 mg/dL (74-106) 10/15/20 07:26 Phosphorus Cancelled 10/15/20 Unknown Magnesium Cancelled 10/15/20 Unknown Total Bilirubin 0.4 mg/dL (0.2-1.0) 10/12/20 07:55 AST 11 U/L (15-37) L 10/12/20 07:55 ALT 18 U/L (12-78) 10/12/20 07:55 Alkaline Phosphatase 99 U/L (45-117) 10/12/20 07:55 Triglycerides 55 mg/dL (<150) 10/12/20 07:55 Cholesterol 158 mg/dL (<200) 10/12/20 07:55 HDL Cholesterol 98 mg/dL (40-60) H 10/12/20 07:55 Cholesterol/HDL Ratio 1.61 10/12/20 07:55 Home Medications: Acetaminophen [Acetaminophen ER] 1 tab PO Q4H PRN 10/11/20 Atenolol [Tenormin] 1 tab PO DAILY 10/11/20 Dexlansoprazole [Dexilant] 60 mg PO DAILY 10/11/20 Escitalopram Oxalate 1 tab PO BEDTIME 10/11/20 Gabapentin 600 mg PO QID 10/11/20 Lidocaine 5% [Lidocaine HCl] 1 appl TOP Q6H PRN 10/11/20 Linaclotide [Linzess] 290 mcg PO DAILY 10/11/20 Lovastatin 20 mg PO DAILY 10/11/20 Metoclopramide HCl [Reglan] 1 tab PO DAILY PRN 10/11/20 Midodrine HCl 5 mg PO BID 10/11/20 Nitroglycerin 0.4 mg SL SEECOM 10/11/20 OXcarbazepine [Oxcarbazepine] 1 tab PO BID 10/11/20 Oxycodone HCl/Acetaminophen [Oxycodone-Acetaminophen 10-325] 1 tab PO Q6H PRN 10/11/20 Quetiapine Fumarate [Seroquel] 50 mg PO BEDTIME 10/11/20 Ranolazine [Ranolazine ER] 1,000 mg PO BID 10/11/20 Trazodone HCl 50 mg PO BEDTIME 10/11/20 Vitamin E (Dl,Tocopheryl Acet) [E-200] 200 unit PO DAILY 10/11/20 hydroCHLOROthiazide [Hydrochlorothiazide] 12.5 mg PO DAILY 10/11/20 Amoxicillin/Potassium Clav [Augmentin 875-125 Tablet] 1 each PO BID #14 tablet 10/14/20 New Medications: Amoxicillin/Potassium Clav [Augmentin 875-125 Tablet] 1 each PO BID #14 tablet Physician Discharge Instructions: Patient presented with dyspnea secondary to right-sided pneumonia. Patient was admitted for treatment. Patient was seen and evaluated by pulmonology. CT scan revealed extensive right-sided pneumonia. No pulmonary malaise noted. Patient improved with treatment. Chest x-ray repeated shows improvement. At discharge patient not requiring any oxygen. At discharge she will return back to the shelter with antibiotics. Patient will continue with Augmentin 875 mg 1 pill twice daily for 7 days. Recommend to recheck chest x-ray in 2 to 4 weeks to monitor resolution and to make sure there is no postobstructive process. Recommend follow-up with pulmonology in 1 to 2 weeks to follow-up hospitalization and continue her care. Patient with hypertension. At discharge she will continue with her medication of hydrochlorothiazide 12.5 mg 1 pill daily and atenolol 50 mg daily. Recommend to maintain blood pressure less than 130/80. Further adjustment can be done by shelter physician. Patient with GERD and hiatal hernia. At discharge she will continue with Dexilant 60 mg daily. GERD precautions in place. Aspiration precautions as well. Patient with bipolar disorder. At discharge she will continue with her current medications of Trileptal 300 mg 1 pill twice daily, Seroquel 50 mg at bedtime, trazodone 50 mg at bedtime, and Lexapro 10 mg daily. Patient with hyperlipidemia. At discharge patient will continue with lovastatin 20 mg daily. Patient with history of TIA, CAD with chronic diastolic CHF. At discharge patient will continue with current medications of Ranexa 1000 mg 1 pill twice daily. Patient also takes midodrine 5 mg 1 pill twice daily. Hold if blood pressure greater than 140 systolic. Patient with chronic pain. At discharge she will continue with gabapentin 600 mg 4 times a day. Patient takes oxycodone as well. Patient will continue with current medications. Further adjustment can be done by shelter physician. Diet: AHA Activity: Fall precautions Followup: Unknown,U [Primary Care Provider] - Time spent managing pt's care (in minutes): 55
[2020-10-15 09:23] VITALS: BP 150/86; TEMP 98.6
[2020-10-15] MEDS: GABAPENTIN 300 MG CAP PO SCH (10:07)
[2020-10-15] MEDS: OXcarbazepine 150 MG TAB PO SCH (10:08)
[2020-10-15] MEDS: atenoloL 50 MG TAB PO SCH (10:11)
[2020-10-15] MEDS: MIDODRINE HCL 5 MG TABLET PO SCH (10:11)
[2020-10-15] MEDS: PANTOPRAZOLE 40 MG INJ IVP SCH (10:13)
[2020-10-15] MEDS: ENOXAPARIN 40 MG/0.4 ML SQ SCH (10:13)
[2020-10-15 10:28] VITALS: O2SAT 98
== END 2020-10-15 12:00 | DRG 194 ==
LOC: ER 04:48 → ERHOLD 09:56 → 4TH 13:41 → 2ND 10-14 20:11
PROVIDERS: ADMIT Hospitalist; ATTEND Family Medicine
PROC: 5A09457 Assistance with Respiratory Ventilation, 24-96 Consecutive Hours, Continuous Positive Airway Pressure (ICD-10-PCS; principal; 2020-10-15)
DX: J18.9 Pneumonia, unspecified organism (principal); I50.32 Chronic diastolic (congestive) heart failure; I11.0 Hypertensive heart disease with heart failure; E78.5 Hyperlipidemia, unspecified; E11.9 Type 2 diabetes mellitus without complications; K21.9 Gastro-esophageal reflux disease without esophagitis; F17.200 Nicotine dependence, unspecified, uncomplicated; G89.29 Other chronic pain; F31.9 Bipolar disorder, unspecified; K44.9 Diaphragmatic hernia without obstruction or gangrene; Z88.1 Allergy status to other antibiotic agents; Z79.899 Other long term (current) drug therapy; Z86.73 Personal history of transient ischemic attack (TIA), and cerebral infarction without residual deficits; Z20.822 Contact with and (suspected) exposure to COVID-19
CPT/HCPCS: 36415; 71045; 71275; 80048; 80053; 80061; 80076; 82805; 83605; 83735; 83880; 84100; 84132; 84145; 84484; 85025; 85379; 85610; 87040; 93005; 94640; 94660; 94760; 99285; C9113; J0360; J1650; J2185; J2270; J2405; J2543; J2550; J2765; J3475; J7030; Q9967; U0003

== ENCOUNTER 2023-08-27 07:46 | Day surgery (SDC) | payer OTHER ==
[2023-08-25 16:22] LABS: Absolute Lymphocytes (CBC) 1.6 K/uL (0.7-4.9); Hematocrit 34.8 % (36.0-45.0); Lymphocytes % 40.3 % (15.3-44.8); MCV 82.9 fL (80-100); MPV 9.8 fL (7.6-11.3); Platelets 155 thou/uL (152-406)
[2023-08-25 16:50] LABS: Potassium 4.7 mEq/L (3.5-5.1)
[2023-08-27] MEDS: NA CHLORIDE 0.9% 1,000 ML ONE ×2 (08:15→12:02)
[2023-08-27] MEDS ORDERED: CEFAZOLIN SODIUM 1 GM/VIAL ONE ×2 (08:35→09:14)
[2023-08-27] MEDS ORDERED: LIDOCAINE 1% MPF 5 ML VIAL ONE (10:04)
[2023-08-27] MEDS ORDERED: ROCURONIUM 50 MG/5 ML VIAL IV ONE (10:04)
[2023-08-27] MEDS ORDERED: ONDANSETRON 4 MG/2 ML VIAL ONE (10:04)
[2023-08-27] MEDS ORDERED: propofoL 200 MG/20 ML VIAL IV ONE ×2 (10:04→11:48)
[2023-08-27] MEDS ORDERED: MIDAZOLAM HCL 2 MG/2 ML INJ ONE (10:05)
[2023-08-27] MEDS ORDERED: FENTANYL CITR 100 MCG/2 ML ONE (10:05)
[2023-08-27] MEDS: CEFAZOLIN SODIUM 2 GM/VIAL ONE (10:10)
[2023-08-27] MEDS ORDERED: EPHEDRINE SULF 50 MG/ML VIAL ONE (10:40)
[2023-08-27] MEDS: BUPIVACAINE 0.25% PF 30 ML VIAL ONE (10:51)
[2023-08-27] MEDS ORDERED: Phenylephrine HCl 10 MG/ML 1 ML VIAL ONE (11:13)
[2023-08-27] MEDS ORDERED: HYDROCODONE/APAP 5/325 MG TAB PO PRN (11:58)
[2023-08-27] MEDS ORDERED: IBUPROFEN 200 MG TAB PO PRN (11:58)
--- NOTE | 2023-08-27 12:03 | P.BOP ---
Preoperative diagnosis: urge Incontinence, OAB Postoperative diagnosis: same Primary procedure: Stg 1+2Interstim, lead insertion under fluoro/insertion neurostimulator Estimated blood loss: min Specimen: none Findings: Rt S3,Rt buttock,leads 2,3 strong Julián+toe,light toe lead 0,1, no Bellw Anesthesia: General Complications: None Transferred to: Recovery Room
--- NOTE | 2023-08-27 15:05 | OP ---
Date of Procedure: 08/27/2023 Surgeon: Delisa Babin MD Legger Press Operator: No assistants. Preoperative Diagnoses: Urge urinary incontinence, refractory overactive bladder. Postoperative Diagnoses: Urge urinary incontinence, refractory overactive bladder. Procedures Performed: Stage 1 and 2 InterStim (complete InterStim) system implantation with incision and implantation of tined quadripolar lead electrodes into the S3 foramen under fluoroscopic guidanc e for needle placement, subcutaneous implantation of sacral nerve neurostimulator and electronic anal ysis and programming. Specimens: No specimens. Drains: No drains. Estimated Blood Loss: Minimal. Findings: Right S3 was used. Right buttock pocket was created for the stimulator. Leads 2 and 3 diaz d strong Julián and toe. Lead 0 and 1 had light toe, no Julián after repositioning of the lead. Anesthesia: General endotracheal. Complications: No complications. Disposition: Transferred to the recovery room in stable condition. Indications: The patient is a 63-year-old with significant urge urinary incontinence, treated with f irst-line and second-line therapies refractory to this, not better from her urge urinary incontinence , which has been causing significant problems with her bladder emptying, especially living in the [facility] home or assisted living. She decided to proceed with testing, which included cystoscopy and uro dynamics. Discussed about neurostimulator and Botox, consented for the neurostimulator. Understandi ng the benefits and risks, initial PNE was performed in the office with excellent response at 1 point on the right side, so she was consented for a complete InterStim system implant. Description Of Procedure: After informed consent was verified, she was taken back to the OR. Her A1 c was 5.1 and 5.2, very stable, well controlled. Consent was re-verified in the preoperative area, t bennett back to the OR. General anesthesia was first given and then she was placed in a prone position per the OR protocol. Pillows were placed under the lower abdomen to flatten the sacrum and under brayden ns to allow the toes to dangle freely. Patient was prepped and draped in the usual sterile fashion u sing a ChloraPrep. The C-arm was draped and moved into position in an AP view to provide fluoroscopi c mapping of the sacral region. The C-arm was then moved to the lateral position and the area from the sacral promontory of the coccy x was identified. 1% lidocaine with epinephrine was given. The foramen needle was introduced approximately 11 cm from the coccyx and 2 cm lateral to the midline . Once the needle was inserted into the S3 foramen, response was checked. I did not have any respon ses either Julián or toes, even though the needle position seemed to be optimal. Then, a needle was placed on the contralateral side and had a similar experience. I then brought a longer needle so that we could try this as the patient had significant amount of sub cutaneous fat. Needle hub was touching the skin and it was difficult to test. The short needles were removed. Then the longer needle was introduced through the patient's right si de. Even S2, S3 was entered. No response, went slightly above on S2. There was a heel rotation, so this confirmed S2. So, we went back down to S3 on the right side. Attempt on the left side was not successful despite placing the needle in the correct foramen. So, on the right side, it was decided to leave the lead as there were toes and Julián with a needle on the right side and S3. The foramen needle stylet was removed, bidirectional guide was placed and confirmed fluoroscopically. The foramen needle was removed. The incision was made peripheral to the bidirectional guide throug h the fascial layer. The lead introducer sheath with dilator was placed over the bidirectional guide and directed to the foramen to ensure the radiopaque marker of the lead introducer did not extend be yond the edge of this anterior to the sacrum. The dilator was unlocked and removed along with the di rectional guide. The lead was then placed in the introducer sheath. Position was checked fluoroscop ically. The lead was then further introduced until 3 electrodes were visible below the sacrum, almos t the 4th electrode straddling the anterior border. Three different positions of the lead were tried and this was the best response that I received with 0 and 1 with light toe and a 2 and 3 with very s albin Julián and plantar flexion of the toe. So, this position was taken, anterior and posterior im ages were taken as well as lateral and these were very optimal. After satisfactory positioning was c onfirmed, the introducer sheath was retracted under continuous fluoro deploying tines into the parasa cral tissue. Further incision was made into the subcutaneous tissue posterior to the iliac crest on the right side . Blunt dissection was continued until the gluteal fascia was identified. Hemostasis was achieved a llowing for sufficient pocket for the neurostimulator. The tunneling tool with straw was placed from the lead exit site subcutaneously to the incised pocket site. The tunneling tool was removed and th e lead was fed through the straw and pulled out through the pocket site. The lead was cleansed off b odily fluids and dried and the pocket was irrigated with sterile water and an antibiotic. The lead w as inserted into the InterStim to neurostimulator and the metal bands were aligned and the blue lead tip clearly visible in the distal portion of the neurostimulator header. The single set screw was ti ghtened with a hex wrench. The neurostimulator was placed into the subcutaneous pocket with the identification side upwards and the lead wrapped counterclockwise, placed in an antibiotic protecting pocket or a bag and this was ne atly trimmed and tucked without leaving any rugged edges to the top. The programming head was then p laced over the implanted neurostimulator in a sterile cover to ensure adequate lead connection and th e parameters were within normal limits. Once the impedances were confirmed, then the procedure was c ompleted by closing the subcutaneous plane with 3-0 Vicryl interrupted and subcuticular with 5-0 [place] cryl in a continuous running fashion and the lead site closed with 5-0 Monocryl interrupted. Dermabo nd, sponges were placed. Patient was recovered from the operating room and taken to the PACU in stab le condition. Then, using the clinician python programmer, the generator was programmed and settings entered in the chart. She will follow up in 3 weeks with a bladder log. ARANZA/ELISA Voice ID: [id number] Report ID: [id number]
[2023-08-27 15:09] VITALS: BP 102/70; TEMP 97.1; O2SAT 96
--- NOTE | 2023-08-27 15:57 | RAD REPORT ---
EXAM DESCRIPTION: RAD - Fluoroscopy <1 Hour - 08/27/2023 1:20 pm CLINICAL HISTORY: SACRAL NEURO MOD COMPARISON: None available. FINDINGS: Six Images were sent to PACS, documenting fluoroscopy used during sacral neuro modulator p lacement procedure. No radiologist was available for the procedure, nor will any image interpretation he provided. Please refer to the procedural report for additional details. Fluoroscopy time: 0.7 Minutes. IMPRESSION: Documentation of fluoroscopy utilization as above.
--- NOTE | 2023-08-27 16:12 | EKG ---
Test Date: 2023-08-25 Test Time: 17:08:19 Research Pharmacist: PREO MEASUREMENT RESULTS: Intervals: Rate: 80 MO: 190 QRSD: 98 QT: 380 QTc: 438 [place]: P: 16 MO: 190 QRS: -38 T: 20 INTERPRETIVE STATEMENTS: Normal sinus rhythm Left axis deviation Possible Anterolateral infarct, age undetermined Abnormal ECG Compared to ECG 08/25/2023 17:07:08 No significant changes Electronically Signed On 08-27-23 16:05:53 NUMERICAL CONTROL NESTING OPERATOR by Yo Odom
--- NOTE | 2023-08-27 16:12 | EKG ---
Test Date: 2023-08-25 Test Time: 17:07:08 Optometric Assistant: PREO MEASUREMENT RESULTS: Intervals: Rate: 80 ND: 190 QRSD: 98 QT: 384 QTc: 442 Dike: P: 18 ND: 190 QRS: -36 T: 21 INTERPRETIVE STATEMENTS: Normal sinus rhythm Left axis deviation Possible Anterolateral infarct, age undetermined Abnormal ECG Compared to ECG 10/11/2020 04:53:30 Left-axis deviation now present Sinus tachycardia no longer present Left anterior fascicular block no longer present Myocardial infarct finding still present Electronically Signed On 08-27-23 16:05:55 REC THERAPIST by Yo Odom
== END 2023-08-27 13:45 | disposition home or self-care (01) ==
LOC: OR 07:46
PROVIDERS: ATTEND Obstetrics & Gynecology
PROC: 0JH73BZ Insertion of Single Array Stimulator Generator into Back Subcutaneous Tissue and Fascia, Percutaneous Approach (ICD-10-PCS; 2023-08-27)
PROC: 01HY3MZ Insertion of Neurostimulator Lead into Peripheral Nerve, Percutaneous Approach (ICD-10-PCS; principal; 2023-08-27 09:00)
DX: N39.41 Urge incontinence (principal); R39.14 Feeling of incomplete bladder emptying; N32.81 Overactive bladder
CPT/HCPCS: 36415; 76000; 80048; 82947; 85025; 93005; C1767; C1778; J0690; J2001; J2250; J2371; J2405; J2704; J3010; J7030

== ENCOUNTER 2024-04-21 06:05 | Day surgery (SDC) | payer OTHER ==
[2024-04-18 15:20] LABS: Absolute Lymphocytes (CBC) 1.5 K/uL (0.7-4.9); Absolute Monocytes 0.3 K/uL (0.1-1.3); Absolute Neutrophil 1.8 K/uL (1.8-8.0); Basophils % 0.3 % (0-1.3); Eosinophils % 1.2 % (0-4.4); Hematocrit 43.5 % (36.0-45.0); Hemoglobin 14.7 g/dL (12.0-15.0); Lymphocytes % 40.2 % (15.3-44.8); MCH 33.1 pg (27.0-35.0); MCHC 33.9 g/dL (32.0-36.0); MCV 97.7 fL (80-100); MPV 9.8 fL (7.6-11.3); Monocytes % 8.9 % (3.3-12.3); Neutrophils % 49.4 % (41.7-73.7); Platelets 142 thou/uL (152-406); RBC Red Blood Cell Count 4.45 M/uL (3.86-4.86); Red Cell Distribution Width 13.9 % (12.1-15.2)
[2024-04-18 15:32] LABS: Anion Gap 6.8 mEq/L (5.0-15.0); Potassium 3.8 mEq/L (3.5-5.1)
[2024-04-21] MEDS: NA CHLORIDE 0.9% 1,000 ML ONE (06:50)
[2024-04-21] MEDS ORDERED: MIDAZOLAM HCL 2 MG/2 ML INJ ONE (06:59)
[2024-04-21] MEDS ORDERED: ONDANSETRON 4 MG/2 ML VIAL ONE (06:59)
[2024-04-21] MEDS ORDERED: FENTANYL CITR 100 MCG/2 ML ONE (06:59)
[2024-04-21] MEDS ORDERED: propofoL 200 MG/20 ML VIAL IV ONE (06:59)
[2024-04-21] MEDS ORDERED: LIDOCAINE 2% MPF 5 ML VIAL ONE (07:00)
[2024-04-21] MEDS: LIDOCAINE HCL/EPINEPHRINE 20 ML MDV ONE (07:08)
[2024-04-21] MEDS: CEFAZOLIN SODIUM 2 GM/VIAL ONE (07:09)
[2024-04-21] MEDS ORDERED: SUCCINYLCHOLINE 20 MG/ML (10 ML) IV ONE (07:21)
[2024-04-21] MEDS ORDERED: ROCURONIUM 50 MG/5 ML VIAL IV ONE (07:39)
[2024-04-21] MEDS: CEFAZOLIN SODIUM 1 GM/VIAL ONE (07:40)
[2024-04-21] MEDS ORDERED: EPHEDRINE SULF 50 MG/ML VIAL ONE (08:04)
[2024-04-21] MEDS ORDERED: GLYCOPYRROLATE 0.2 MG/ML SYR ONE ×3 (09:29)
[2024-04-21] MEDS ORDERED: NEOSTIGMINE 1 MG/ML -10 ML VIAL ONE (09:29)
[2024-04-21] MEDS: BUPIVACAINE 0.25% PF 10 ML VIAL ONE (09:50)
[2024-04-21 11:45] VITALS: BP 116/71; TEMP 97; O2SAT 96
--- NOTE | 2024-04-21 12:02 | EKG ---
Test Date: 2024-04-18 Test Time: 14:50:06 Loop Puller: MAY MEASUREMENT RESULTS: Intervals: Rate: 108 ND: 198 QRSD: 98 QT: 354 QTc: 474 [place]: P: 58 ND: 198 QRS: -45 T: 49 INTERPRETIVE STATEMENTS: Sinus tachycardia with occasional premature ventricular complexes Low voltage QRS Left anterior fascicular block Cannot rule out Inferior infarct, age undetermined Possible Anterolateral infarct, age undetermined Abnormal ECG Compared to ECG 08/25/2023 17:08:19 Ventricular premature complex(es) now present Low QRS voltage now present Left anterior fascicular block now present Sinus rhythm no longer present Left-axis deviation no longer present Myocardial infarct finding still present Electronically Signed On 04-21-24 11:54:51 CDT by Octavio Alcala
--- NOTE | 2024-05-07 21:55 | OP ---
Date of Procedure: 04/21/2024 Surgeon: Delisa Babin MD Buffing Wheel Presser: No visitor use assistant. Preoperative Diagnoses: Severe urge urinary incontinence and suspicion of fracture of the lead attac hed to the neurostimulator and malfunction. Postoperative Diagnoses: Lead fracture at the site of the insertion into the neurostimulator header, urge urinary incontinence, need for replacement of the lead and the neurostimulator. Procedures Performed: Explantation of the neurostimulator header and removal of the lead. Then, imp lantation of a new lead under fluoroscopic guidance and a full system implantation, which is stage I and stage II. Specimens: No specimens. Complications: No complications. Drains: No drains. Anesthesia: General endotracheal. Estimated Blood Loss: 10 mL. Findings: The neurostimulator header had twisted in the pocket on her buttock and this had led to tw isting of the lead in at least 3 twists on each side where the lead had retracted back towards the le ad insertion site and all the coils were present scarred in this area. The lead was fractured at the site of insertion into the neurostimulator, until the neurostimulator was removed with a portion of the tip inside it intact and the rest of the lead was completely retrieved and retracted through reop ening of the lead insertion site at S3. It is completely explanted and the lead was completely remov ed without any residual left from the S3 foramen. A full stage I and stage II implantation of the tined quadripolar lead electrodes into the S3 foramen under fluoroscopic guidance for insertion of needle and implantation of the sacral neurostimulator i nto a new buttock pocket on the contralateral side with programming and the setting with neurostimula tor to previous settings with electronic analysis and programming. All this was done all at 1 setting. Brief History And Physical: The patient is a 63-year-old with significant urge urinary incontinence, treated with first and second-line therapies and was refractory to this disease, not better from her urge urinary incontinence standpoint. She has had prolapse repair and this is still intact. She un derwent cystoscopy and urodynamics followed by stage I and II InterStim system implantation in 2023 after good response . She had excellent control of her bladder with at least 6 months and recently started reporting that. Her incontinence is much worse. Her urinary test was negative for an infection. Then, on further o bservation and reprogramming, there was still no improvement, which led us to see the patient and the re was a suspicion that the neurostimulator has definitely moved. It appeared to be more perpendicul ar to the skin and not flap like it used to be. Then, it was positioned originally and le d to a question of whether there was a problem as the stimulator side with connection because there w as a fracture of the lead, so patient was consented for revision of her neurostimulator, possible rem oval and replacement of the neurostimulator or removal of the entire system with placement of her jennie InterStim system including the lead and the neurostimulator. Her daughter was understanding of all the consent and the process and the problem itself, patient as well. Lives in a [facility], but fu lly comprehending her problem as well as consenting for the procedure. She was then taken back to [facility] operating room. Preoperative consent was verified again and questions and answers were done to the ir satisfaction. Description Of Procedure: Once she was taken back to the OR, she was intubated in the stretcher and then moved over to the OR table in the prone position using the OR protocol. Then, a pillow was plac ed under her abdomen to flatten her sacrum and under shins to allow the toes to dangle freely. The b ack was prepped with Betadine and draped in a sterile fashion. Then, I went over to the right buttoc k pocket after injecting with 1% lidocaine with epinephrine 10 mL. Incision was made with a 15 blade , brought back into the pocket and as soon as the neurostimulator was identified, it seemed to be out of the pocket and twisted. Gently on touching the neurostimulator and first attempted to slide it o ut of the pocket. The lead that was connected to the neurostimulator was found to be detached. This could have been just attached with a very small string of the lead that was still intact and then on attempt of removal could have fractured, but there was clearly a fracture of the lead. The plan was to explant the neurostimulator and the lead. Explantation of the neurostimulator was done easily as it was already removed out of the pocket. It was handed over to the deburring technician. Then, the lead was left clamped with a hemostat at the pocket site. The scar site of the lead near the right S3 insertion was injected with lidocaine with epinephrine. 11 blade was used to make an incision at least 1 cm long. Then, after going through the skin and fas darrion, opened up carefully with a hemostat the lead itself. Then, under fluoroscopic guidance, I was a ble to see how the lead was coiled up immediately lateral to the insertion site like a necklace. Pic ture was taken. Then, slowly the lead was teased out by dissecting down to the level where the twist ed portion of the lead was present and slowly pulling out intact and clamping the hemostat from the p ocket site. The lead was retrieved completely. Removal of the tined portion of the lead. This was done by grasping the lead with hemostat and going down, dissecting, and opening the tissue, the pericecal tissue, the presacral tissue down to the lev el of the bone. Then, grasping the lead as low as possible near the foramen, was gently tucked, and under direct fluoroscopy made sure that there was mobility and then slowly in a stepwise fashion, wal salvador the lead down with the hemostat, entirely was slowly retrieved. There was minimal bleeding at t his time and there was good hemostasis secured by applying pressure for a few minutes as the lead was handed out. Full system implantation: Plan was to reinsert the lead at the same S3 level and then create a butto ck pocket on the contralateral side as this side existing pocket could be too large for the new batte ry. The surface markings were made even before I made all the incision 9 cm above the coccyx in the midli ne then a deep centimeter markings were made 2 cm lateral to the midline on either side. Markings we re made at each of the centimeter quiros and then lines were drawn and fluoroscopically, the C-arm was draped into AP position and the sacral region was mapped to identify the midline of the sacrum SI figueroa int sciatic notches and medial foraminal borders and sacral foramina. Then, was turned into the late ral position to image the area from the sacral promontory to the coccyx. The foramen needle was then introduced at 15 cm above the coccyx as measured and 2 cm lateral. Then, going through the same lead insertion site as before with the needle, I got to the S3 foramen and on ce this was dropped, the tip of the needle was positioned under fluoroscopic guidance right below the anterior border of the sacrum and tested. There was a good response of alison and plantar flexion of the great toe and the position was confirmed with external test stimulator. The foramen needle stylet was then removed and a bidirectional guide was placed under fluoroscopic gu idance. The foramen needle was then removed and the lead introducer sheath with dilator was placed o [place] the bidirectional guide and directed into foramen to ensure that the radiopaque marker of the leelee d introducer did not extend beyond the anterior edge of the sacrum. The dilator was then unlocked an d removed along with the bidirectional guide. The lead was then placed through the introducer sheath to the first white line and the positioning was checked fluoroscopically and the lead was then furth er introduced until 3 electrodes were visible below the sacrum. Each electrode was tested for confir mation or visualization of the load and plantar flexion of the great toe. There was a satisfactory r esponse and satisfactory positioning confirmed fluoroscopically. The introducer sheath was retracted under continuous fluoro deploying the lead tines into the presacral tissue. An AP view was also bianca en before I removed the introducer sheath. Further incision was made into the subcutaneous tissue posterior to the iliac crest and lateral to th e sacrum on the left buttock. Then, blunt dissection was continued until I was . In here, I created a buttock pocket with the help of the monopolar cautery tip. This buttock pocket was made only large enough to tightly fit the neurostimulator. A tunneling tool with straw was placed in the lead site subcutaneously to the incised pocket site. T he tunneling tool was removed and the lead was fed through the straw and pulled out of the pocket jamir e and the straw was removed. The lead was cleansed off bodily fluids and dried and was inserted into the neurostimulator header and then metal bands were aligned with a blue tip clearly visible at the distal portion of the neurostimulator header. A single set screw was tightened with a hex wrench. The neurostimulator was then placed in the subcutaneous pocket with the identification side placed up wards and carefully making sure that the lead was underneath the neurostimulator that was not long en ough length to widen the lead around. Next, the programming head was placed over the implanted neuro stimulator in a sterile cover to ensure adequate lead connection and the parameters were within sanna l limits. The impedances were confirmed to be within normal limits. The wounds were irrigated with antibiotic solution and water and closed at the new implant site with 3-0 Vicryl in an interrupted fashion and skin closure with subcuticular running 4-0 Monocryl suture. Then, Dermabond was placed and a sterile bandage. Then, the lead introduction site was closed with the help of interrupted Monocryl sutures x3 and this was also bandaged in a similar fashion as the ot her incision. Then, the lead site where explantation was done, this was closed with subcuticular 3-0 Vicryl sutures to close the space. The pocket capsule was excised with monopolar current and h emostasis was secured so that it does not form a seroma and then the subcuticular sutures with contin uous running 4-0 Monocryl and the incision was closed in a similar fashion. The EBL was 5-10 mL. Neelam mckeon was transferred to the recovery room in stable condition and using the clinician android programmer, the ge nerator was programmed to the prior settings. The patient had good sensation and she was discharged home. She will follow up in 3 weeks postop. Significant precautions have been given on being carefu l on how she moves out of bed or load herself into a car or a truck to avoid any similar outcome wher e there is displacement or detachment of the lead. Her daughter was debriefed about her findings. ARANZA/ELISA Voice ID: [id number] Report ID: [id number]
== END 2024-04-21 11:33 | disposition home or self-care (01) ==
LOC: OR 06:05
PROVIDERS: ATTEND Obstetrics & Gynecology
PROC: 01HY3MZ Insertion of Neurostimulator Lead into Peripheral Nerve, Percutaneous Approach (ICD-10-PCS; 2024-04-21)
PROC: 0JH73BZ Insertion of Single Array Stimulator Generator into Back Subcutaneous Tissue and Fascia, Percutaneous Approach (ICD-10-PCS; 2024-04-21)
PROC: 01PY0MZ Removal of Neurostimulator Lead from Peripheral Nerve, Open Approach (ICD-10-PCS; principal; 2024-04-21 07:30)
DX: T85.111A Breakdown (mechanical) of implanted electronic neurostimulator of peripheral nerve electrode (lead), initial encounter (principal); N39.41 Urge incontinence; I50.9 Heart failure, unspecified; F03.90 Unspecified dementia, unspecified severity, without behavioral disturbance, psychotic disturbance, mood disturbance, and anxiety; I10 Essential (primary) hypertension; K21.9 Gastro-esophageal reflux disease without esophagitis; E78.5 Hyperlipidemia, unspecified
CPT/HCPCS: 64585; 64595; 64561; 64590; 93005; 85025; 80048; 36415; 82947 ×2; J2704; J2710; J2001; J2250; J3010; J2405; J7030; J0690; C1778; C1767; J2003

== ENCOUNTER 2024-06-07 07:00 | Day surgery (SDC) | payer OTHER ==
[2024-06-06 11:29] LABS: Absolute Eosinophils 0.1 K/uL (0-0.5); Absolute Lymphocytes (CBC) 1.5 K/uL (0.7-4.9); Absolute Monocytes 0.5 K/uL (0.1-1.3); Absolute Neutrophil 2.8 K/uL (1.8-8.0); Basophils % 0.4 % (0-1.3); Eosinophils % 1.5 % (0-4.4); Hematocrit 44.9 % (36.0-45.0); Lymphocytes % 31.5 % (15.3-44.8); MCH 33.1 pg (27.0-35.0); MCHC 33.3 g/dL (32.0-36.0); MCV 99.3 fL (80-100); MPV 10.3 fL (7.6-11.3); Monocytes % 9.2 % (3.3-12.3); Neutrophils % 57.4 % (41.7-73.7); Nucleated Red Blood Cells % 0.1 % (0-0); Platelets 133 thou/uL (152-406); RBC Red Blood Cell Count 4.52 M/uL (3.86-4.86); Red Cell Distribution Width 12.9 % (12.1-15.2)
[2024-06-06 11:47] LABS: Anion Gap 8.9 mEq/L (5.0-15.0); Potassium 3.9 mEq/L (3.5-5.1)
[2024-06-07] MEDS ORDERED: LIDOCAINE 1% MPF 5 ML VIAL ONE (07:30)
[2024-06-07] MEDS ORDERED: propofoL 200 MG/20 ML VIAL IV ONE (07:30)
[2024-06-07] MEDS: NA CHLORIDE 0.9% 1,000 ML ONE (07:45)
[2024-06-07] MEDS ORDERED: EPINEPHRINE 1 MG/ML VIAL ONE (08:11)
[2024-06-07 10:55] VITALS: TEMP 97.4
[2024-06-07 10:57] VITALS: O2SAT 96
[2024-06-07 10:59] VITALS: BP 16/84
== END 2024-06-07 10:10 | disposition home or self-care (01) ==
LOC: OR 07:00
PROVIDERS: ATTEND Internal Medicine Gastroenterology
PROC: 0DBM8ZX Excision of Descending Colon, Via Natural or Artificial Opening Endoscopic, Diagnostic (ICD-10-PCS; principal; 2024-06-07 08:30)
DX: R19.4 Change in bowel habit (principal); R10.9 Unspecified abdominal pain; R14.0 Abdominal distension (gaseous); R19.7 Diarrhea, unspecified; D12.4 Benign neoplasm of descending colon
CPT/HCPCS: 45384; 85025; 80048; 36415; 82947; 88305; J2704; J2003; J7030; J0171

== ENCOUNTER → 2024-10-11 | Day surgery (SDC) | payer OTHER ==
[~2024-10-11] MED LIST: LIDOCAINE 1% MPF 5 ML VIAL ONE; NA CHLORIDE 0.9% 1,000 ML ONE; propofoL 200 MG/20 ML VIAL IV ONE
[2024-10-11 07:12] LABS: Absolute Eosinophils 0.1 K/uL (0-0.5); Absolute Lymphocytes (CBC) 1.7 K/uL (0.7-4.9); Absolute Monocytes 0.4 K/uL (0.1-1.3); Absolute Neutrophil 1.9 K/uL (1.8-8.0); Basophils % 0.5 % (0-1.3); Eosinophils % 2.2 % (0-4.4); Hematocrit 49.4 % (36.0-45.0); Hemoglobin 17.3 g/dL (12.0-15.0); Lymphocytes % 40.4 % (15.3-44.8); MCH 34.1 pg (27.0-35.0); MCHC 35.1 g/dL (32.0-36.0); MCV 97.3 fL (80-100); MPV 9.8 fL (7.6-11.3); Monocytes % 10.2 % (3.3-12.3); Neutrophils % 46.7 % (41.7-73.7); Nucleated Red Blood Cells % 0.1 % (0-0); Platelets 137 thou/uL (152-406); RBC Red Blood Cell Count 5.07 M/uL (3.86-4.86); Red Cell Distribution Width 12.8 % (12.1-15.2)
[2024-10-11 07:25] LABS: Anion Gap 7.9 mEq/L (5.0-15.0); Potassium 3.9 mEq/L (3.5-5.1)
[2024-10-11 10:13] VITALS: BP 126/59; TEMP 98.1; O2SAT 97
--- NOTE | 2024-10-11 10:54 | EKG ---
Test Date: 2024-10-11 Test Time: 07:23:01 Circus Performer: ALEJANDRO MEASUREMENT RESULTS: Intervals: Rate: 83 ND: 172 QRSD: 110 QT: 402 QTc: 472 Nunn: P: 23 ND: 172 QRS: -27 T: -2 INTERPRETIVE STATEMENTS: Normal sinus rhythm Possible Inferior infarct, age undetermined Cannot rule out Anterior infarct, age undetermined Abnormal ECG Compared to ECG 04/18/2024 14:50:06 Sinus tachycardia no longer present Ventricular premature complex(es) no longer present Left anterior fascicular block no longer present Myocardial infarct finding still present Electronically Signed On 10-11-24 10:53:29 CDT by Octavio Alcala
== END ==
LOC: OR 06:12
PROVIDERS: ATTEND Internal Medicine Gastroenterology
PROC: 0D738ZZ Dilation of Lower Esophagus, Via Natural or Artificial Opening Endoscopic (ICD-10-PCS; 2024-10-11)
PROC: 0DB78ZX Excision of Stomach, Pylorus, Via Natural or Artificial Opening Endoscopic, Diagnostic (ICD-10-PCS; principal; 2024-10-11 08:51)
DX: R13.19 Other dysphagia (principal); K21.9 Gastro-esophageal reflux disease without esophagitis; K29.50 Unspecified chronic gastritis without bleeding; K22.4 Dyskinesia of esophagus; K44.9 Diaphragmatic hernia without obstruction or gangrene
CPT/HCPCS: 93005; 85025; 80048; 36415; 88312; 82947; 88304; 43239; 43249; J2704; J2003; J7030; C1726; 88305